=== PATIENT | female | born 1960 ===

== ENCOUNTER 2017-05-15 11:20 | Day surgery (SDC) | payer BC ==
[2017-04-22 08:28] VITALS: BMI 29.7
[2017-05-15] MEDS ORDERED: ceFAZolin IV 1 gm in Dextrose 1 GM/50 ML BAG IVPB ONE (13:43)
[2017-05-15] MEDS ORDERED: Dexamethasone 4 mg/1 ml ONE (13:43)
[2017-05-15] MEDS ORDERED: Bupivacaine HCl 0.5% PF (10 ml) Inj ONE ×2 (13:43)
[2017-05-15] MEDS ORDERED: Triamcinolone Acetonide 40 mg/mL Inj ONE (13:44)
[2017-05-15] MEDS ORDERED: Lidocaine 1% Inj (20ml) ONE (13:44)
[2017-05-15] MEDS ORDERED: Propofol 10 mg/ml Inj (20 ML) ONE ×2 (13:56→14:39)
[2017-05-15] MEDS ORDERED: Midazolam 2 MG/2 ML VIAL ONE (13:56)
[2017-05-15] MEDS ORDERED: Lidocaine Hydrochloride 5 ML INJ ONE (14:01)
[2017-05-15] MEDS ORDERED: Lactated Ringer's 1,000 ML IV ONE (14:10)
[2017-05-15] MEDS ORDERED: Oxycodone/Acetaminophen 5/325 mg Tab PO PRN ×2 (14:56)
[2017-05-15] MEDS ORDERED: HYDROmorphone 0.5 mg/0.5 ml ISec IVP PRN (15:06)
--- NOTE | 2017-05-15 15:11 | PCM.SURG1 ---
Surgeon's Initial Post Op Note - Surgeon's Notes Surgeon: Dr. Cutler, DPM Commercial Trailer Truck Driver: Dr. Chelo Garcia PGY-1, Dr. Elise Cho PGY-2 Type of Anesthesia: IV Sedation, Local Anesthesia Administered By: Dr. Kessler/Oh Pre-Operative Diagnosis: left foot plantar fascial fibromatosis Operative Findings: see operative report. I: 10cc 1:1 mix 1% Lidocaine plain and 0.5% Marcaine plain pre-op, add'l 4cc 0.5% Marcaine plain after first incision, 1 cc 0.5% Marcaine plain post-op. M: 30 degree endoscope, 3-0 Nylon Post-Operative Diagnosis: left foot plantar fascial fibromatosis Operation Performed: endoscopic plantar fasciotomy left foot Specimen/Specimens Removed: n/a Estimated Blood Loss: EBL {In ML}: 2 Blood Products Given: N/A Drains Used: No Drains Post-Op Condition: Good Date of Surgery/Procedure: 05/15/17 Time of Surgery/Procedure: 14:00
[2017-05-15] MEDS ORDERED: Lactated Ringer's 1,000 ML IV SCH (15:15)
[2017-05-16 11:53] VITALS: BP 164/81; PULSE 74; RESP 12; TEMP 98; O2SAT 99
--- NOTE | 2017-05-18 08:09 | PCM.OP ---
Operative Report - Operative Report Date of Surgery/Procedure: 05/15/17 Time of Surgery/Procedure: 14:00 Surgeon: LASHAY JerniganM Assistant Head Cashier: Dr. Chelo Garcia PGY-1, Dr. Elise Cho PGY-2 Anesthesia/Sedation: IV sedation + local Pre-Operative Diagnosis: left foot plantar fascial fibromatosis Post-Operative Diagnosis: left foot plantar fascial fibromatosis Indication for Surgery: The patient is a 57 year-old female with the above diagnoses. The patient has exhausted conservative treatment at this time and now requests surgical intervention. The patient signed the consent after careful explanation of risks, benefits, complication and alternatives for surgical procedure. No guarantees were given nor implied. NPO status was confirmed prior to taking pt to the OR. Operative Findings: see operative report. I: 10cc 1:1 mix 1% Lidocaine plain and 0.5% Marcaine plain pre-op, add'l 4cc 0.5% Marcaine plain after first incision, 1 cc 0.5% Marcaine plain post-op. M: 30 degree endoscope, 3-0 Nylon Procedure/Operation Description: The patient was brought to the operating room and placed on the operating room table in supine position. A well-padded pneumatic ankle tourniquet was placed to the patient's left ankle in a supramalleolar position. After induction of IV sedation, the patient received a total of 10mL of 1:1 mixture of 0.5% Marcaine and 1% lidocaine plain in local block fashion to the left foot. Once local anesthesia was achieved, the left foot was then prepped and draped in usual sterile manner. Esmarch was utilized to exsanguinate the patient's L foot. Pneumatic ankle tourniquet was then inflated to 250 mmHg and procedure began. Attention was then directed to the medial aspect of the heel where. approximately 5 cm measuring from the back of the heel to the front of the. heel, a vertical incision was made overlying the plantar fascia at. approximately 1 cm in length. At this time, an additional 4cc of 0.5% Marcaine plain was injected to ensure proper anesthesia. Next, utilizing a Metzenbaum, the soft tissue and its attachments were brought down to the level of the plantar fascia in which a plantar fascia elevator was utilized to swoop under the plantar fascia to the lateral aspect of the plantar fascia. After noting that the plantarfascia was noted, another 1-cm vertical incision was made to the lateral aspect of the heel. Next, the trocar was placed in the medial portal and inserted across through the lateral portal. Q- tips were used to clean out the field. Next, under endoscopy, the plantar fascia was clearly visible and the medial band was cut utilizing the instrument from the EPF set. The medial band was then resected. Images were taken of the resection. Muscle belly was. noted and not touched. The foot was then placed in various ranges of motion noting that appropriate motion was achieved and the medial band was clearly released. The wound was then flushed with copious amounts of sterile normal saline. The skin was closed with 3-0 Nylon. Postoperative bandages included Bacitracin, Adaptic, DSD and an Eusebio wrap to the left foot. Estimated Blood Loss: 2cc Complications: none Discharge & Condition: The patient tolerated the anesthesia and procedure well and was escorted to the recovery room with vital signs stable and neurovascular status intact to the left foot. This patient will follow up with Dr. Cutler in his office next week.
== END 2017-05-15 17:40 | disposition home or self-care (01) ==
LOC: C.SDS 11:20 → MERGE 17:30 → C.SDS 17:40
PROVIDERS: ATTEND Podiatrist Foot & Ankle Surgery
DX: M72.2 Plantar fascial fibromatosis (principal); Z88.2 Allergy status to sulfonamides; F41.9 Anxiety disorder, unspecified; Z90.49 Acquired absence of other specified parts of digestive tract; Z98.890 Other specified postprocedural states; Z79.899 Other long term (current) drug therapy
CPT/HCPCS: 29893; 97116; 97161; G8978; G8979; G8980; J0690; J1100; J2250; J2704; J3010; J7120

== ENCOUNTER 2018-11-20 11:08 | Emergency (ER) | payer BC | END 2018-11-20 13:03 | disposition home or self-care (01) | LOC: C.ER 11:08 ==